=== PATIENT | female | born 1970 | race Caucasian/White ===

== ENCOUNTER 2016-05-14 03:14 | Emergency (ER) | payer OTHER ==
[~2016-05-14] VITALS: Ht 175.3 cm; Wt 72.1 kg
--- NOTE | 2016-05-14 03:14 | NUR ---
[facility] TO ER OF1
[2016-05-14 03:15] VITALS: BP 106/49
--- NOTE | 2016-05-14 03:20 | NUR ---
45[facility] W/C/O HEADACHE AND BACK PAIN X3DAYS. DENIES ANY N/V/D, FEVER, SOB. HX:SICKLE CELL, ASTHMA.SKIN IS PINK/WARM/DRY; AAOX4 WITH EVEN AND STEADY GAIT; LUNGS CLEAR BL; HR EVEN AND REGULAR; PT DENIES ANY FEVER, CP, SOB, OR COUGH AT THIS TIME; PATIENT STATES PAIN OF 9/10 AT THIS TIME; VSS; PATIENT POSITIONED FOR COMFORT;ER MD MADE AWARE OF PT STATUS.
--- NOTE | 2016-05-14 03:27 | NUR ---
Patient being evaluated by physician.
[2016-05-14] MEDS ORDERED: IBUPROFEN 800 MG TAB PO ONE (03:30)
[2016-05-14 03:42] VITALS: BP 100/60
--- NOTE | 2016-05-14 03:42 | NUR ---
PATIENT [facility] [address] [employer]. PATIENT EXAMINED BY DR. WILEY. PATIENT MEDICALLY CLEARED AND RELEASED IN CUSTODY IN STABLE CONDITION. ORIGINAL PRE-BOOK FORM GIVEN TO OFFICER MAXI.
== END 2016-05-14 03:42 ==
LOC: MED 03:14
DX: G44.201 Tension-type headache, unspecified, intractable (principal); S39.012A Strain of muscle, fascia and tendon of lower back, initial encounter; X58.XXXA Exposure to other specified factors, initial encounter; Y93.89 Activity, other specified; Y92.89 Other specified places as the place of occurrence of the external cause; Y99.8 Other external cause status